=== PATIENT | male | born 1980 | race Caucasian/White ===

== ENCOUNTER 2017-05-04 22:29 | Emergency (ER) | payer BC, OTHER ==
[2017-05-04 22:34] VITALS: BP 130/75; PULSE 90; TEMP 98; BMI 27.8
[2017-05-04] MEDS ORDERED: DIPHTH,PERTUSS(ACELL),TET 0.5 ML DISP.SYRIN IM ONE (23:13)
--- NOTE | 2017-05-04 23:56 | PDOC ---
History of Present Illness - General Chief Complaint: Laceration Stated Complaint: LACERATION Time Seen by Provider: 05/04/17 22:55 - History of Present Illness Initial Comments: 05/05/17 01:30 CHIEF COMPLAINT: laceration HISTORY OF PRESENT ILLNESS: 36-year-old male with no past medical history presents to ED with laceration to right palm. 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 PAST MEDICAL HISTORY: Denies past medical history FAMILY HISTORY: Denies SURGICAL HISTORY: Denies ALLERGIES: No known drug allergies REVIEW OF SYSTEMS General/Constitutional: Denies fever or chills. Denies weakness, weight change. HEENT: Denies change in vision. Denies ear pain or discharge. Denies sore throat. Cardiovascular: Denies chest pain or shortness of breath. Respiratory: Denies cough, wheezing, or hemoptysis. Gastrointestinal: Denies nausea, vomiting, diarrhea or constipation. Denies rectal bleeding. Genitourinary: Denies dysuria, frequency, or change in urination. Musculoskeletal: Denies joint or muscle swelling or pain. Denies neck or back pain. Skin and breasts: Laceration to R hand. PHYSICAL EXAM General Appearance: Well-appearing, appropriately dressed. No apparent distress. HEENT: EOMI, PERRLA Respiratory/Chest: Lungs CTAB. Cardiovascular: RRR. S1, S2. Musculoskeletal/Extremities: Normal inspection. FROM of all extremities, normal capillary refill. Pelvis Stable. No CVA tenderness. No tenderness to extremities, pedal edema, swelling, erythema or deformity. Integumentary: 4 cm superficial laceration to R hand to base of thumb. No tendon involvement, FROM to all digits. Appropriate color, dry, warm. 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 Fully oriented, alert. Appropriate mood/affect. Motor strength 5/5. No appreciable EOM palsy, facial droop or sensory deficit. 05/05/17 01:31 Past History - Past Medical History Allergies/Adverse Reactions: Allergies Allergy/AdvReac Type Severity Reaction Status Date / Time No Known Drug Allergies Allergy Verified 05/04/17 22:31 Home Medications: Ambulatory Orders Oxycodone HCl [Roxicodone -] 5 mg PO Q6H 08/21/14 - Surgical History Orthopedic Surgery: Yes (HAND SX) - Psycho/Social/Smoking Cessation Hx Suicidal Ideation: No Smoking History: Never smoked Hx Alcohol Use: Yes (OCC) Drug/Substance Use Hx: No Substance Use Type: Alcohol *Physical Exam - Vital Signs Last Vital Signs Temp Pulse Resp BP Pulse Ox 98 F 90 18 130/75 98 05/04/17 22:32 05/04/17 22:32 05/04/17 22:32 05/04/17 22:32 05/04/17 22:32 Procedures - Consent Consent obtained: Verbal - Laceration/Wound Repair Right Volar Hand 1st digit Wound Length: 2.6 to 5.0 cm Wound Explored: clean Wound's Depth, Shape: linear Irrigated w/ Saline: Yes Betadine Prep: Yes Anesthesia: 1% Lidocaine Amount of Anesthetic (ccs): 3 Wound Repaired With: Sutures Suture Size/Type: 5:0 Number of Sutures: 3 Sterile Dressing Applied: Yes (xeroform dressing, kerlix) ED Treatment Course - Medications Given in the ED: ED Medications Discontinued Medications Generic Name Dose Route Start Last Admin Trade Name Juan Luis PRN Reason Stop Dose Admin Diphtheria/Tetanus/Acell Pertussis 0.5 ml 05/04/17 23:13 05/04/17 23:21 Boostrix - IM 05/04/17 23:14 0.5 ml .ONCE ONE Administration Medical Decision Making - Medical Decision Making 05/04/17 23:55 36-year-old male with no past medical history presents to ED with laceration to right palm. Patient unsure when he had last tetanus. Lac repair (see procedure note) -Tdap Advised patient of post lac repair instructions and of signs and symptoms for return to ER; patient verbalized understanding and agrees to plan. *DC/Admit/Observation/Transfer Diagnosis at time of Disposition: Laceration of hand Qualifiers: Encounter type: initial encounter Foreign body presence: without foreign body Laterality: right Qualified Code(s): S61.411A - Laceration without foreign body of right hand, initial encounter - Discharge Dispostion Disposition: HOME Admit: No - Referrals Referrals: Huber Mir MD [Primary Care Provider] - - Patient Instructions Printed Discharge Instructions: DI for Laceration Repair Additional Instructions: Please keep hand clean and dry for next 24-48 hours. Afterwards you may wash with mild soap and water. Please return in 10-14 days for suture removal. If you experience any redness, warmth, swelling, or streaking to your hand, or you develop nausea, vomiting, diarrhea, or fever, please return to the ER. - Post Discharge Activity Work/School Note: Back to Work
--- NOTE | 2017-05-05 00:01 | PDOC ---
*Physical Exam - Vital Signs Last Vital Signs Temp Pulse Resp BP Pulse Ox 98 F 90 18 130/75 98 05/04/17 22:32 05/04/17 22:32 05/04/17 22:32 05/04/17 22:32 05/04/17 22:32 ED Treatment Course - Medications Given in the ED: ED Medications Discontinued Medications Generic Name Dose Route Start Last Admin Trade Name Freq PRN Reason Stop Dose Admin Diphtheria/Tetanus/Acell Pertussis 0.5 ml 05/04/17 23:13 05/04/17 23:21 Boostrix - IM 05/04/17 23:14 0.5 ml .ONCE ONE Administration Medical Decision Making - Medical Decision Making 05/05/17 00:01 agree with care from JOHN Sandoval *DC/Admit/Observation/Transfer Diagnosis at time of Disposition: Laceration of hand Qualifiers: Encounter type: initial encounter Foreign body presence: without foreign body Laterality: right Qualified Code(s): S61.411A - Laceration without foreign body of right hand, initial encounter - Referrals Referrals: Huber Mir MD [Primary Care Provider] - - Patient Instructions Printed Discharge Instructions: DI for Laceration Repair Additional Instructions: Please keep hand clean and dry for next 24-48 hours. Afterwards you may wash with mild soap and water. Please return in 10-14 days for suture removal. If you experience any redness, warmth, swelling, or streaking to your hand, or you develop nausea, vomiting, diarrhea, or fever, please return to the ER. - Post Discharge Activity Work/School Note: Back to Work
== END 2017-05-05 00:01 | disposition home or self-care (01) ==
LOC: JER 22:29
PROC: 3E0234Z Introduction of Serum, Toxoid and Vaccine into Muscle, Percutaneous Approach (ICD-10-PCS; principal; 2017-05-04)
PROC: 0HQFXZZ Repair Right Hand Skin, External Approach (ICD-10-PCS; 2017-05-04)
DX: S61.411A Laceration without foreign body of right hand, initial encounter (principal); W27.8XXA Contact with other nonpowered hand tool, initial encounter; Y93.89 Activity, other specified; Y92.69 Other specified industrial and construction area as the place of occurrence of the external cause; Y99.0 Civilian activity done for income or pay
CPT/HCPCS: 90715; 99283-25

== ENCOUNTER 2017-05-15 16:05 | Emergency (ER) | payer BC, OTHER ==
[2017-05-15 16:23] VITALS: BP 120/75; PULSE 77; TEMP 97.8; BMI 27.8
--- NOTE | 2017-05-15 16:48 | PDOC ---
Suture Removal/Wound Check HPI - History of Present Illness Chief Complaint: Suture/Staple Removal(Here) Stated Complaint: SUTURE REMOVAL Time Seen by Provider: 05/15/17 16:25 History Source: Yes: Patient Exam Limitations: Yes: No Limitations Treated at: [facility] Date of Last ED visit: 05/05/17 - Previous ED Treatment Type of procedure performed on last visit: Yes: Laceration Repair Tetanus Immunization: Yes: Given at last ED visit Antibiotics Prescribed: No - Onset of Previous Treatment Date of Occurence: 05/05/17 Past History - Past Medical History Allergies/Adverse Reactions: Allergies No Known Drug Allergies Allergy (Verified 05/15/17 16:15) - Immunization History Tetanus Status: Unknown - Social History Smoking Status: Never smoked Medical Decision Making - Medical Decision Making 05/15/17 16:47 36 yo M presents to [facility] for suture removal. 3 stitches placed 05/05/17 Stitches removed. Full ROM to thumb, no erythema, warmth, swelling. Edges well approximated. *DC/Admit/Observation/Transfer Diagnosis at time of Disposition: Visit for suture removal - Discharge Dispostion Disposition: HOME Condition at time of disposition: Stable Admit: No - Patient Instructions Printed Discharge Instructions: DI for Suture Removal
== END 2017-05-15 16:50 | disposition home or self-care (01) ==
LOC: JERFT 16:05
DX: Z48.02 Encounter for removal of sutures (principal)
CPT/HCPCS: 99281-25